=== PATIENT | male | born 1960 | race Caucasian/White ===

== ENCOUNTER 2016-11-09 21:15 | Observation (INO) ==
[2016-11-09] MEDS ORDERED: 0.9 % Sodium Chloride 1,000 ML IVC ONE ×2 (21:54→22:51)
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
[2016-11-09 22:29] LABS: Basophils # 0.1 K/mcL (0.0-0.2); Basophils % 0.4 %; Eosinophils # 0.1 K/mcL (0.0-0.6); Eosinophils % 0.5 %; Hematocrit 36.1 % (37.5-50.1); Hemoglobin 12.5 g/dL (12.9-16.9); Immature Granulocytes % 0.9 % (0-4); Lymphocytes % 4.2 %; Mean Corpuscular HGB Conc 34.6 g/dL (31.6-35.5); Mean Corpuscular Hemoglobin 32.8 pg (28.0-33.3); Mean Corpuscular Volume 94.8 fL (83.0-100.0); Mean Platelet Volume 11.5 fL (9.4-12.4); Monocytes # 1.4 K/mcL (0.0-1.3); Monocytes % 5.7 %; Platelet Count 269 K/mcL (140-400); Red Blood Count 3.81 M/mcL (4.19-5.50); Segmented Neutrophils % 88.3 %
[2016-11-09 22:35] LABS: Bilirubin,Urine Negative (Negative); Clarity,Urine Clear (Clear); Color,Urine Yellow (Yellow); Ketones,Urine Negative (Negative); Urobilinogen,Urine Normal (Normal)
[2016-11-09 22:41] LABS: Alanine Aminotransferase 24 Units/L (0-55); Albumin 3.2 g/dL (3.5-5.0); Albumin/Globulin Ratio 0.8 (1.1-2.2); Alkaline Phosphatase 93 Units/L (38-126); Aspartate Amino Transferase 16 Units/L (5-34); BUN/Creatinine Ratio 19 (6-26); Bilirubin,Total 0.3 mg/dL (0.2-1.2); Blood Urea Nitrogen 19 mg/dL (8-26); Calcium 8.6 mg/dL (8.6-10.8); Carbon Dioxide 18 mEq/L (19-29); Chloride 109 mEq/L (98-109); Glucose 146 mg/dL (70-99); Osmolality,Calculated 295 (280-300); Potassium 3.6 mEq/L (3.5-4.5); Sodium 140 mEq/L (136-145); Total Protein 7.2 g/dL (6.0-8.3); eGFR For African Americans > 60 (> 60); eGFR For Non-African Americans > 60 (> 60)
[2016-11-10] MEDS ORDERED: Ondansetron ODT 4 MG TAB.RAPDIS SL PRN (00:31)
[2016-11-10] MEDS ORDERED: Naloxone 0.4 MG/ML INJ IVP PRN (00:31)
[2016-11-10] MEDS: Ibuprofen 400 MG TABLET PO PRN ×2 (01:51→16:39)
[2016-11-10] MEDS: Piperacillin/Tazobactam 3.375 GM in D5% in Water (Mini-Bag+) 100 ML IVPB SCH ×4 (01:51→18:21)
[2016-11-10] MEDS: 0.9 % Sodium Chloride 1,000 ML IVC SCH ×4 (01:52→18:21)
[2016-11-10 04:02] LABS: Blood,Urine Small (Negative); Glucose,Urine (UA) Normal (Normal)
[2016-11-10 04:03] LABS: Protein,Urine 30 mg/dL (Neg-Trace)
[2016-11-10 04:04] LABS: Nitrite,Urine Positive (Negative)
[2016-11-10 04:05] LABS: Leukocyte Esterase,Urine Small (Negative); Squamous Epithelial Cell,Urine Few per lpf (None-Few); WBC,Urine 15-30 per hpf (0-3)
[2016-11-10 04:06] LABS: Bacteria,Urine Moderate per hpf (None-Few)
[2016-11-10 05:17] LABS: Basophils # 0.1 K/mcL (0.0-0.2); Basophils % 0.4 %; Eosinophils # 0.2 K/mcL (0.0-0.6); Eosinophils % 0.8 %; Hematocrit 33.9 % (37.5-50.1); Hemoglobin 11.6 g/dL (12.9-16.9); Immature Granulocytes % 0.9 % (0-4); Lymphocytes # 1.1 K/mcL (0.6-4.6); Mean Corpuscular HGB Conc 34.2 g/dL (31.6-35.5); Mean Corpuscular Hemoglobin 32.4 pg (28.0-33.3); Mean Corpuscular Volume 94.7 fL (83.0-100.0); Mean Platelet Volume 11.4 fL (9.4-12.4); Monocytes % 5.3 %; Neutrophils # 15.9 K/mcL (1.6-8.9); Platelet Count 239 K/mcL (140-400); Red Blood Count 3.58 M/mcL (4.19-5.50); Red Cell Distribution Width 13.2 % (11.5-14.5); Segmented Neutrophils % 86.6 %
[2016-11-10 05:35] LABS: Alanine Aminotransferase 21 Units/L (0-55); Albumin 2.7 g/dL (3.5-5.0); Albumin/Globulin Ratio 0.8 (1.1-2.2); Alkaline Phosphatase 89 Units/L (38-126); Aspartate Amino Transferase 14 Units/L (5-34); BUN/Creatinine Ratio 18 (6-26); Bilirubin,Total 0.3 mg/dL (0.2-1.2); Blood Urea Nitrogen 14 mg/dL (8-26); Calcium 7.9 mg/dL (8.6-10.8); Carbon Dioxide 18 mEq/L (19-29); Chloride 112 mEq/L (98-109); Globulin 3.2 g/dL (2.4-3.5); Glucose 123 mg/dL (70-99); Osmolality,Calculated 292 (280-300); Potassium 3.5 mEq/L (3.5-4.5); Sodium 140 mEq/L (136-145); Total Protein 5.9 g/dL (6.0-8.3); eGFR For African Americans > 60 (> 60); eGFR For Non-African Americans > 60 (> 60)
[2016-11-10] MEDS: *HR* Enoxaparin 40 MG/0.4 ML SYRINGE SQ SCH (06:45)
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
[2016-11-10] MEDS: Aspirin 81 MG TAB.CHEW PO SCH (08:18)
[2016-11-10] MEDS: Multivit/Ca/Min/Fe/FA 1 TAB TABLET PO SCH (08:19)
[2016-11-10] MEDS: amLODIPine 5 MG TABLET PO SCH (08:19)
[2016-11-10] MEDS: Acetaminophen 325 MG TABLET PO PRN ×2 (11:34→22:41)
[2016-11-11] MEDS: Ibuprofen 400 MG TABLET PO PRN (02:02)
[2016-11-11] MEDS: Piperacillin/Tazobactam 3.375 GM in D5% in Water (Mini-Bag+) 100 ML IVPB SCH (02:02)
[2016-11-11 05:57] LABS: Basophils # 0.1 K/mcL (0.0-0.2); Basophils % 0.7 %; Eosinophils # 0.4 K/mcL (0.0-0.6); Eosinophils % 3.8 %; Hematocrit 33.4 % (37.5-50.1); Hemoglobin 11.5 g/dL (12.9-16.9); Immature Granulocytes % 0.6 % (0-4); Lymphocytes # 1.8 K/mcL (0.6-4.6); Lymphocytes % 17.5 %; Mean Corpuscular HGB Conc 34.4 g/dL (31.6-35.5); Mean Corpuscular Hemoglobin 32.3 pg (28.0-33.3); Mean Corpuscular Volume 93.8 fL (83.0-100.0); Mean Platelet Volume 11.2 fL (9.4-12.4); Monocytes # 1.2 K/mcL (0.0-1.3); Neutrophils # 6.6 K/mcL (1.6-8.9); Platelet Count 260 K/mcL (140-400); Red Blood Count 3.56 M/mcL (4.19-5.50); Red Cell Distribution Width 12.9 % (11.5-14.5); Segmented Neutrophils % 65.4 %
[2016-11-11 06:08] LABS: Albumin 2.7 g/dL (3.5-5.0); BUN/Creatinine Ratio 15 (6-26); Blood Urea Nitrogen 11 mg/dL (8-26); Calcium 8.5 mg/dL (8.6-10.8); Carbon Dioxide 18 mEq/L (19-29); Chloride 111 mEq/L (98-109); Glucose 124 mg/dL (70-99); Osmolality,Calculated 291 (280-300); Phosphorous 3.1 mg/dL (2.3-4.7); Potassium 3.6 mEq/L (3.5-4.5); Sodium 140 mEq/L (136-145); eGFR For African Americans > 60 (> 60); eGFR For Non-African Americans > 60 (> 60)
[2016-11-11] MEDS: *HR* Enoxaparin 40 MG/0.4 ML SYRINGE SQ SCH (06:54)
--- NOTE | 2016-11-11 07:06 | Discharge Summary ---
Date of Encounter: 11/12/16 Time of Encounter: 07:04 - Discharge Diagnosis (1) UTI (urinary tract infection) Priority: Primary Status: Acute Comments: Patient has responded well to treatment. The case afebrile for more than 48 more than 24 hours. His wbc count has his back to normal. CT of the abdomen to assess CT of the abdomen and pelvis shows a 5 mm stone left kidney cortex. Directed in nature. Also has gallstones nondestructive. Patient is doing well. Is to discontinue IV fluid give her give him IV antibiotics before discharge today. His urine culture has been negative. Preliminary report on his blood culture is negative as well. He does have an appointment with urology as an outpatient. Further assessment and management of his left kidney stone can be done as an outpatient. This was discussed with patient. (2) Diabetes 1.5, managed as type 2 Priority: Secondary Status: Chronic Comments: His HBA1c is well controlled and within normal limits it seems that his blood sugars are well controlled with diet. He needs to continue present diet control (3) Hypertension Priority: Secondary Status: Chronic Comments: Diet control diabetes. His hemoglobin A-1 C is 5.6 at the present time. Targert blodd pressure is systolic of 120 or less as tolerated. stable Qualifiers: Hypertension type: essential hypertension Qualified Code(s): I10 - Essential (primary) hypertension (4) Hyperlipidemia Priority: Secondary Status: Chronic Comments: Stable no new change. Qualifiers: Hyperlipidemia type: unspecified Qualified Code(s): E78.5 - Hyperlipidemia , unspecified (5) Anemia Priority: Secondary Status: Acute Comments: He noted to be mildly anemic his stool for quiet is negative. Iron studies are pending. Recommend that further workup to be done as an outpatient. Qualifiers: Anemia type: unspecified type Qualified Code(s): D64.9 - Anemia, unspecified (6) Renal calculus or stone Priority: Secondary Status: Acute Comments: Left kidney renal calculi millimeter in size. On obstructive. Patient states that he has an appointment with urology. Further assessment and management as an outpatient. Advised to increase fluid intake. (7) Gall bladder stones Priority: Secondary Status: Chronic Comments: CT of the abdomen shows gallstones incidental findings. Non-obstructive and asymptomatic in. Conservative management . - Discharge Medications Home Medications: Allopurinol [Zyloprim 100 MG] 200 mg PO DAILY 11/09/16 [History] Aspirin 81 mg PO DAILY 11/09/16 [History] Cholecalciferol (Vitamin D3) [Vitamin D3] 50,000 unit PO QWEEK 11/09/16 [History ] Losartan Potassium [Cozaar] 100 mg PO DAILY 11/09/16 [History] Multivitamin [Multi-Day Vitamins] 1 each PO DAILY 11/09/16 [History] Phenazopyridine HCl [Pyridium] 200 mg PO TIDAC 11/09/16 [History] Pravastatin Sodium [Pravachol] 80 mg PO DAILY 11/09/16 [History] amLODIPine [Norvasc] 10 mg PO DAILY 11/09/16 [History] Ibuprofen [Motrin] 800 mg PO Q8HR PRN 11/10/16 [History] Sulfamethoxazole/Trimeth DS [Bactrim Ds] 1 each PO BID 5 Days 11/11/16 [Rx] Allergies/Adverse Reactions: 3 Allergy/AdvReac Type Severity Reaction Status Date / Time ciprofloxacin [From Cipro] Allergy Hives Verified 11/09/16 21:41 Pneumococcal Vaccine Allergy Anaphylaxis Verified 11/09/16 21:41 Procedures/tests Complete & Pending: Procedures Performed prior 72 hours Category Date Time Status CT abd pelvis wo no iv no oral [CT] Routine Cat Scan 11/10/16 07:58 Completed Date of admission: 11/09/16 23:37 Primary care physician: Gerald Daigle CNP - Patient Status Disposition: Home, Self-Care Condition: Good Overall status at discharge: patient is back to baseline - Discharge Instructions Instructions: Urinary Tract Infection in Men (DC) Follow Up With: Gerald Daigle CNP [Primary Care Provider] - (Call office on Sunday to schedule f/u appt in 5-7 days. ) Forms: Inpatient Work/School Release Additional Instructions: Follow up with his primary care provider in a week. To have a follow-up with the urology as well for his kidney stone. He needs to discuss and further assess the cause of his anemia. A possible G.I. workouts such as EGD and colonoscopy is needed as an outpatient. - Diet and Activity Activity: increase activity as tolerated, other (off work for a week, ) Diet: diabetic diet Hospital course: Mr. Means is a 56 year old male who was admitted with complicated UTI. He was febrile with mild tachycardia and a white count of 33,000. He was started on IV fluids and IV antibiotics. Response has been excellent. At the present time he is afebrile His WBC count is back to normal. The CT of the abdomen shows left kidney stone in cortex non-obstructive. His blood cultures and urine culture have been negative. Plan is to discontinue IV fluid,increases ambulation and discharged him home on oral antibiotics. Further follow-up with the primary care provider. - Time Spent with Patient Total time spent providing and/or coordinating discharge services: - Constitutional Vitals: Temp Pulse Resp BP Pulse Ox 98.2 F 84 17 112/71 95 11/11/16 04:30 11/11/16 04:30 11/11/16 04:30 11/11/16 04:30 11/11/16 04:30 General appearance: Present: cooperative, A&O X 3, pleasant. Absent: no acute distress, severe distress - Head Head exam: Present: normal inspection - Eye Eye exam: Present: EOMI, PERRL - ENT ENT exam: Present: mucous membranes moist - Neck Neck exam general surgery: Present: supple. Absent: lymphadenopathy, tenderness , nuchal rigidity - Respiratory Respiratory exam: Present: CTAB. Absent: rhonchi, stridor, wheezes, tachypnea Additional comments: His chest examination is normal. Air entry is equal in both lungs. Please appreciated. - Cardiovascular Cardiovascular exam: Present: RRR. Absent: JVD Additional comments: Heart's regular rate and rhythm. No [place] for murmurs appreciated. - GI/Abdominal GI/Abdominal exam: Present: normal bowel sounds, soft. Absent: guarding, rebound, rigid Additional comments: His abdominal examination is unremarkable as well. His left costovertebral tenderness has improved. Bowel sounds are positive. - Neurological Exam Neurological exam: Present: CN II-XII intact, normal gait, oriented X3, no focal deficits Additional comments: He is alert oriented and cooperative. Neurological examination is normal.
[2016-11-11] MEDS ORDERED: Piperacillin/Tazobactam 3.375 GM in D5% in Water (Mini-Bag+) 100 ML IVPB SCH (08:00)
[2016-11-11] MEDS: amLODIPine 5 MG TABLET PO SCH (08:27)
[2016-11-11] MEDS: Multivit/Ca/Min/Fe/FA 1 TAB TABLET PO SCH (08:27)
[2016-11-11] MEDS: Aspirin 81 MG TAB.CHEW PO SCH (08:27)
[2016-11-11 11:24] VITALS: BP 145/82
[2016-11-11 13:59] LABS: Hemoglobin A1C 5.6 %
[2016-11-11 18:35] LABS: % Iron Saturation 17 % (20-55); Iron 42 mcg/dL (65-175); Transferrin 175 mg/dL (174-364)
== END 2016-11-11 12:35 | disposition home or self-care (01) ==
LOC: INPGRE 21:15 → EMEROOGRE 21:15 → INPGRE 23:51
PROVIDERS: ADMIT Internal Medicine; ATTEND Internal Medicine